=== PATIENT | male | born 1995 | race Caucasian/White ===

== ENCOUNTER 2024-05-15 16:00 | Emergency (ER) | payer BC, OTHER ==
[2024-05-15 16:05] VITALS: BP 152/76; PULSE 84; RESP 16; TEMP 97.8; BMI 26.4
== END 2024-05-15 18:12 | disposition home or self-care (01) ==
LOC: JER 16:00
DX: S06.0X0A Concussion without loss of consciousness, initial encounter (principal); Y04.8XXA Assault by other bodily force, initial encounter
CPT/HCPCS: 70450-TC; 70486-TC; 99284-25